=== PATIENT | female | born 1940 | race Caucasian/White ===

== ENCOUNTER → 2016-11-14 | Outpatient (CLI) | payer MEDICARE, BC ==
--- NOTE | 2016-11-15 06:55 | MM ---
Reason for exam: clinical finding. Last mammogram was performed 6 years and 7 months ago. History: Patient is postmenopausal. Physical Findings: Nurse did not find any significant physical abnormalities on exam. MG 3D Diag Mammo W/Cad LEWIS Bilateral CC and MLO view(s) were taken. XCCL and ML view(s) were taken of the right breast. Prior study comparison: April 09, 2010, bilateral digital screening mammogram. June 11, 2007, bilateral screening mammogram w/CAD. There are scattered fibroglandular densities. Finding: There is a 1.8 mm high density, spiculated irregular mass in the right breast with enlarged right axillary lymphadenopathy. These results were verbally communicated with the patient and result sheet given to the patient on 11/14/16. ASSESSMENT: Highly suggestive of malignancy, BI-RAD 5 RECOMMENDATION: Surgical consultation and ultrasound core biopsy of the right breast. (right breast and axilla) Called Dr. Scales with mammographic findings and has scheduled an appointment for the patient for 12/09/16 at 1:[address] Ferrer. Biopsy scheduled for 11/21/16 at 12:20. PRELIMINARY REPORT CALLED AND FAXED TO DR. FERRER ON 11/15/16 AT 300/TP.
--- NOTE | 2016-11-15 06:58 | USB ---
Reason for exam: clinical finding. History: Patient is postmenopausal. US Breast Limited RT Right breast ultrasound demonstrates a 1.0 x 0.8 x 1.2cm solid lesion at 9 o'clock, a 2.6 x 1.9 x 2.8cm node at the axilla tail and a 0.8 x 0.5 x 1.9cm node at the axilla tail. These results were verbally communicated with the patient and result sheet given to the patient on 11/14/16. ASSESSMENT: Suspicious, BI-RAD 4 RECOMMENDATION: Ultrasound core biopsy of the right breast. (irregular mass with lymphadenopathy) (right breast and axilla) Called Dr. Scales with mammographic findings and has scheduled an appointment for the patient for 12/09/16 at 1:[address] Ferrer. Biopsy scheduled for 11/21/16 at 12:20. PRELIMINARY REPORT CALLED AND FAXED TO DR. FERRER ON 11/15/16 AT 300/TP.
== END | disposition home or self-care (01) ==
LOC: RADMAMWWP 13:53
PROVIDERS: ATTEND Family Medicine
DX: R92.8 Other abnormal and inconclusive findings on diagnostic imaging of breast (principal); R59.0 Localized enlarged lymph nodes
CPT/HCPCS: 76642; G0204; G0279

== ENCOUNTER → 2016-11-21 | Day surgery (SDC) | payer MEDICARE, BC ==
[2016-11-21 12:07] VITALS: RESP 16; BMI 36.6
--- NOTE | 2016-11-21 14:19 | USB ---
EXAMINATION TYPE: US biopsy breast VAD RT DATE OF EXAM: 11/21/2016 CLINICAL HISTORY: R92.8 Abn mammogram. TECHNIQUE: Ultrasound guided core biopsy of right breast. COMPARISON: Previous ultrasound dated 11/14/2016 FINDINGS: The procedure of ultrasound guided core biopsy was explained to the patient. Benefits, alternatives, and risks were discussed. An informed consent was then obtained. The patient was placed in supine positioning for imaging and for the procedure. The overlying skin was prepped and draped in usual sterile fashion. Lidocaine buffered with bicarbonate was used as anesthetic into the skin and subcutaneous tissue up to area of concern in the right breast. A amaury was made with surgical scalpel. Under ultrasound guidance, a 12-gauge vacuum assisted biopsy gun device was used to obtain 6 core samples. Following this, a biopsy clip was left in lesion. The patient tolerated the procedure well without any immediate complication. The patient was kept in the radiology department for short stay after the procedure and then discharged home in stable condition. Pathology is pending. A postprocedure mammogram was performed to confirm clip placement. IMPRESSION: SUCCESSFUL ULTRASOUND-GUIDED VAD BIOPSY OF THE RIGHT BREAST. Pathology Results: Malignant A. BREAST, RIGHT SITE A, 9:00, CORE BIOPSY: INVASIVE DUCTAL CARCINOMA. SEE SURGICAL PATHOLOGY CANCER CASE SUMMARY AND COMMENT. B. BREAST, RIGHT SITE B, AXILLARY TAIL, CORE BIOPSY: INVASIVE DUCTAL CARCINOMA. SEE SURGICAL PATHOLOGY CANCER CASE SUMMARY AND COMMENT. Recommendation Surgical consult of the right breast. [facility]
--- NOTE | 2016-11-21 14:23 | USB ---
EXAMINATION TYPE: US biopsy breast VAD RT DATE OF EXAM: 11/21/2016 CLINICAL HISTORY: R92.8 Abn mammogram. TECHNIQUE: Ultrasound guided core biopsy of right axilla. COMPARISON: Previous ultrasound dated 11/14/2016 FINDINGS: The procedure of ultrasound guided core biopsy was explained to the patient. Benefits, alternatives, and risks were discussed. An informed consent was then obtained. The patient was placed in supine positioning for imaging and for the procedure. The overlying skin was prepped and draped in usual sterile fashion. Lidocaine buffered with bicarbonate was used as anesthetic into the skin and subcutaneous tissue up to area of concern in the right breast. Under ultrasound guidance, a 14-gauge coaxial [place] needle was used to obtain 3 core samples. Following this, a [place] clip was left in lesion. The patient tolerated the procedure well without any immediate complication. The patient was kept in the radiology department for short stay after the procedure and then discharged home in stable condition. Pathology is pending. A postprocedure mammogram was performed to confirm clip placement. IMPRESSION: SUCCESSFUL ULTRASOUND-GUIDED VAD BIOPSY OF THE RIGHT AXILLA. Pathology Results: Malignant A. BREAST, RIGHT SITE A, 9:00, CORE BIOPSY: INVASIVE DUCTAL CARCINOMA. SEE SURGICAL PATHOLOGY CANCER CASE SUMMARY AND COMMENT. B. BREAST, RIGHT SITE B, AXILLARY TAIL, CORE BIOPSY: INVASIVE DUCTAL CARCINOMA. SEE SURGICAL PATHOLOGY CANCER CASE SUMMARY AND COMMENT. Recommendation Surgical consult of the right breast. [facility]
--- NOTE | 2016-11-21 14:24 | MM ---
EXAMINATION TYPE: US biopsy breast VAD RT DATE OF EXAM: 11/21/2016 CLINICAL HISTORY: R92.8 Abn mammogram. TECHNIQUE: Ultrasound guided core biopsy of right breast. COMPARISON: Previous ultrasound dated 11/14/2016 FINDINGS: The procedure of ultrasound guided core biopsy was explained to the patient. Benefits, alt ernatives, and risks were discussed. An informed consent was then obtained. The patient was placed in supine positioning for imaging and for the procedure. The overlying skin w as prepped and draped in usual sterile fashion. Lidocaine buffered with bicarbonate was used as anes thetic into the skin and subcutaneous tissue up to area of concern in the right breast. Under ultrasound guidance, a 12-gauge vacuum assisted biopsy gun device was used to obtain 6 core [address]ess ples. Following this, a biopsy clip was left in lesion. The patient tolerated the procedure well without any immediate complication. The patient was kept in the radiology department for short stay after the procedure and then discharged home in stable condi tion. Pathology is pending. A postprocedure mammogram was performed to confirm clip placement. IMPRESSION: SUCCESSFUL ULTRASOUND-GUIDED VAD BIOPSY OF THE RIGHT BREAST.
[2016-11-21 14:28] VITALS: BP 130/63; PULSE 65; TEMP 97.5
== END ==
LOC: RADUSWWP 11:32
PROVIDERS: ATTEND Surgery
DX: C50.911 Malignant neoplasm of unspecified site of right female breast (principal); R92.8 Other abnormal and inconclusive findings on diagnostic imaging of breast
CPT/HCPCS: 88305; 88342; 88341; 19083; 19084; G0206; A4648; J2001

== ENCOUNTER → 2016-12-14 | Outpatient (CLI) | payer MEDICARE, BC ==
--- NOTE | 2016-12-14 11:54 | PE ---
EXAMINATION TYPE: PET CT fusion skull to thigh DATE OF EXAM: 12/14/2016 CLINICAL HISTORY: Breast cancer initial staging study. Biopsy-proven invasive ductal carcinoma in rig ht breast lesion and axillary mass on biopsy November 21. TECHNIQUE: Following the intravenous administration of 14.6 mCi of F-18 FDG, whole body images are performed from the skull base to the midthigh. Images are reviewed on the computer in the coronal, a xial, and sagittal planes. Reconstructed rotating images are created on independent workstation and reviewed on the computer. A non-contrast CT is performed in conjunction with the PET scan. COMPARISON: Diagnostic right breast mammogram and ultrasound November 21, 2016 and older studies. FINDINGS: SKULL BASE AND NECK: No suspicious hypermetabolic uptake is seen in the neck. Mild uptake at level o f the tongue base and vocal cords is symmetric. CHEST, MEDIASTINUM, AND HILAR REGION: Correlating with recent mammograms and ultrasounds there is 2.3 x 2.0 cm right axillary hypermetabolic mass with max SUV of 6.87 on axial image 66 correlates with b iopsy-proven malignancy. Spiculated subcentimeter lesion with biopsy clip central right breast on axial image 76 does not show suspicious hypermetabolic uptake currently. No additional suspicious masses or areas of abnormal hypermetabolic uptake are seen in the right papo st or axilla. No suspicious hypermetabolic areas are seen in the opposite left breast or the remainder of the thora x. ABDOMEN AND PELVIS: No suspicious hypermetabolic uptake is seen in the abdomen or pelvis. OSSEOUS STRUCTURES: No suspicious hypermetabolic uptake is seen in osseous structures. Mild increase uptake at level of both shoulder joints may reflect inflammatory change. OTHER CT: There is peripheral fibrosis and reticulation in bilateral upper lobes. Cardiomegaly is present. Uterus is surgically absent or markedly atrophic in appearance. There is prominent multilevel spurring and disc space narrowing in the cervical spine. There is mult ilevel spurring in the thoracic spine. There is prominent multilevel facet arthropathy in the lumbar spine. There is fairly moderate joint space loss in both hips. Osseous structures are demineralized. IMPRESSION: Central subcentimeter biopsy-proven malignancy right breast does not show hypermetabolic uptake (size limitation perhaps?). Hypermetabolic uptake is seen in known right axillary biopsy-prove n mass or malignancy. No metastatic malignancy or additional suspicious right axillary masses identif ied.
== END ==
LOC: RADPETMAIN 07:20
PROVIDERS: ATTEND Surgery
DX: C50.411 Malignant neoplasm of upper-outer quadrant of right female breast (principal)
CPT/HCPCS: 78815; A9552

== ENCOUNTER → 2016-12-17 | Outpatient (CLI) | payer MEDICARE, BC | END | disposition home or self-care (01) | LOC: LABWHC1 16:48 | PROVIDERS: ATTEND Surgery | DX: C50.919 Malignant neoplasm of unspecified site of unspecified female breast (principal) | CPT/HCPCS: 36415; 82565; 84520 ==

== ENCOUNTER → 2016-12-19 | Outpatient (CLI) | payer MEDICARE, BC ==
--- NOTE | 2016-12-23 11:13 | BMR ---
EXAMINATION TYPE: MR breast BILAT wo/w con DATE OF EXAM: 12/19/2016 COMPARISON: PET/CT from 5 days ago. HISTORY: Biopsy here at [facility] on PACS. Newly diagnosed right breast cancer with axillary involvement Ju 2016 CONTRAST: Multiplanar, multisequence images of the breasts were acquired utilizing 20 mL intravenous MultiHance gadolinium contrast. TECHNIQUE: A series of fat and water weighted images in the long and short axis views of both breasts are obtained in conjunction with dynamic contrast MRI with subtraction technique. Three-dimensional and additional postprocessing imaging is created on independent workstation and reviewed during offi cial interpretation of this study. REFERENCE: Bilateral breast mammogram November 14, 2016 BI-RADS 5. Limited right breast ultrasound October [id number] BI-RADS 4. FINDINGS: Exam is noted markedly suboptimal as is markedly degraded by patient motion and subsequent misregistration artifact. Repeat sequences are not performed because of motion and patient having sig nificant discomfort unable to continue. There is scattered fibroglandular tissue throughout both breasts. There is symmetric minimal backgrou nd enhancement. There is artifact from biopsy clip near level of the nipple slight lateral aspect of right breast anterior depth corresponds to area of biopsy-proven malignancy. No residual mass or susp icious enhancement at this level is clearly seen. Towards the right axilla there is well-defined 2.4 cm round mass with artifact from biopsy clip seen along anterior margin . Remainder of both breasts shows no pathologic enhancement. No suspicious skin thickening is seen bila terally. No concerning intramammary adenopathy is present. No additional suspicious axillary lymph no siva are noted bilaterally. IMPRESSION: Markedly suboptimal study without convincing evidence of additional area of neoplasm in e ither breast. BI-RADS 6 right breast Recommendation: Appropriate surgical and oncologic management.
== END | disposition home or self-care (01) ==
LOC: RADMRIMAIN 19:18
PROVIDERS: ATTEND Surgery
DX: C50.411 Malignant neoplasm of upper-outer quadrant of right female breast (principal)
CPT/HCPCS: 0159T; C8908; A9577; 77059

== ENCOUNTER → 2017-02-13 | Outpatient (CLI) | payer MEDICARE, BC ==
--- NOTE | 2017-02-13 14:58 | BD ---
EXAMINATION TYPE: MG DEXA axial skeleton. DATE OF EXAM: 02/13/2017 COMPARISON: NONE CLINICAL HISTORY: C50.811 BREAST CANCER, Z79.890 POST MENOPAUSAL Height: 61 Weight: 230 FRAX RISK QUESTIONS: Alcohol (3 or more units per day): NO Family History (Parent hip fracture): NO Glucocorticoids (More than 3mos): NO (Ex: prednisone, prednisolone, methylprednisolone, dexamethasone, and hydrocortisone). History of Fracture in Adulthood: NO Secondary Osteoporosis: NO 1. Type 1 Diabetes: NO 2. Hyperthyroidism: NO 3. Menopause before 45: NO 4. Malnutrition: NO 5. Chronic liver disease: NO Rheumatoid Arthritis: NO Current Tobacco Use: NO RISK FACTORS HISTORY OF: Family History of Osteoporosis: NO Active: PRETTY MUCH...USES CANE Diet low in dairy products/other sources of calcium: NO Postmenopausal woman: HYST AT AGE 40, NO HORMONAL CHANGES NOTICED Take estrogen and/or progesterone medications: ESTROGEN FOR 1 MONTH How lon MONTH Lost more than 2 inches in height since high school: NO Hyperparathyroidism: NO Adrenal Insufficiency: NO MEDICATIONS: Additional Medications: ZANTAC, CALCIUM AND VIT D3, Additional History: BILAT TKRS , PT HAS LYMPH CA NOW, RT BREAST CA, OSTEOARTHRITIS EXAM MEASUREMENTS: Bone mineral densitometry was performed using the [employer]. Bone mineral density as measured about the Lumbar spine is: ----- L1-L4(G/cm2): 1.446 T Score Values are as follows: ----- L1: 2.0 ----- L2: 1.9 ----- L3: 3.1 ----- L4: 1.7 ----- L1-L4: 2.2 Bone mineral density THIS IS HER FIRST BONE DENSITY TEST WITH [facility] Bone mineral density about the R hip (g/cm2): 1.031 Bone mineral density about the L hip (g/cm2): 1.033 T Score values are as follows: -----R Neck: -0.6 -----L Neck: -0.6 -----R Total: 0.2 -----L Total: 0.2 Bone mineral density FIRST BONE DENSITY TEST AT [facility] FRAX%'S: THERE IS A 8.0% CHANCE FOR A MAJOR OSTEOPOROTIC FX AND A 1.0% FOR HIP FX....PROBABILITY OF FX IN 10YRS TIME IMPRESSION: Normal (Values between +1 and -1 indicate normal bone mass). Consider repeating this study in 5 year s or sooner if there is some new clinical indication FOR BOTH HIPS AND HER LUMBAR SPINE. NOTE: T-SCORE=SD OF THE YOUNG ADULT MEAN.
== END ==
LOC: RADBDWWP 13:09
PROVIDERS: ATTEND Internal Medicine Hematology & Oncology
DX: C50.811 Malignant neoplasm of overlapping sites of right female breast (principal); N95.1 Menopausal and female climacteric states; Z79.890 Hormone replacement therapy
CPT/HCPCS: 77080

== ENCOUNTER → 2017-04-15 | Outpatient (CLI) | payer MEDICARE, BC ==
--- NOTE | 2017-04-15 13:40 | USB ---
Reason for exam: clinical finding. History: Patient is postmenopausal and has history of breast cancer at age 76. Malignant US breast needle core addl RT of the right breast, November 21, 2016. Malignant US biopsy breast VAD RT of the right breast, November 21, 2016. Physical Findings: Nurse Summary: prominent nodes right axilla, bilateral breasts soft, nodular, movable (nurse ts). US Breast RT Right breast ultrasound includes all four quadrants, the retroareolar region and axilla. Finding demonstrates a 10 x 5 x 8mm irregular, solid, hypoechoic lesion at 9 o'clock, clip seen, slightly smaller and a 16 x 12 x 17mm oval, lobular, solid , hypoechoic lesion at the axilla tail, clip seen, smaller. These results were verbally communicated with the patient and result sheet given to the patient on 04/15/17. ASSESSMENT: Known biopsy proven malignancy, BI-RAD 6 RECOMMENDATION: Surgical consultation of the right breast. Appropriate management with Dr. Ferrer. Case discussed with Dr Ferrer via telephone. Called with mammographic findings and has scheduled an appointment for the patient for 04/15/[address] Ferrer. PRELIMINARY REPORT CALLED AND FAXED TO DR. FERRER ON 04/15/17. [facility]
== END | disposition home or self-care (01) ==
LOC: RADUSWWP 12:17
PROVIDERS: ATTEND Surgery
DX: C50.911 Malignant neoplasm of unspecified site of right female breast (principal)

== ENCOUNTER 2017-04-23 07:22 | Day surgery (SDC) | payer MEDICARE, BC ==
[2017-04-18 14:38] VITALS: BMI 35.4
[~2017-04-23 07:22] MED LIST: DEXAMETHASONE SOD PHOSPHATE 10 MG/ML 1 ML VIAL IV ONE; HEPARIN SODIUM,PORCINE 5,000 UNIT/ML 1 ML VIAL SQ ONE; LACTATED RINGERS 1,000 ML IV SCH; MIDAZOLAM 2 MG/2 ML VIAL IV PRN; ONDANSETRON 4 MG/2 ML VIAL IVP ONE; Pre Op ABX Message 1 EACH MISC MISCELLANE ONE
[2017-04-23] MEDS ORDERED: ALPRAZolam 0.25 MG TAB PO ONE (08:05)
[2017-04-23] MEDS ORDERED: LIDOCAINE 1% 20 ML VIAL (10MG/ML) FOR IV START INTRADERMA ONE (08:13)
[2017-04-23 08:59] LABS: Basophils % (A) 1 %; CH 29.6; CHCM 32.9; Eosinophils # (A) 0.3 k/uL (0-0.7); Eosinophils % (A) 5 %; HCT 37.2 % (34.0-46.0); HDW 2.56; HGB 12.4 gm/dL (11.4-16.0); Luc # (Auto) 0.15; Luc % (Auto) 2; Lymphocytes # (A) 1.3 k/uL (1.0-4.8); Lymphocytes % (A) 21 %; MCH 30.3 pg (25.0-35.0); MCHC 33.4 g/dL (31.0-37.0); MCV 90.6 fL (80.0-100.0); Mean Platelet Volume 8.4; Monocytes # (A) 0.4 k/uL (0-1.0); Monocytes % (A) 6 %; Neutrophils # (A) 4.1 k/uL (1.3-7.7); Neutrophils % (A) 65 %; RDW 14.3 % (11.5-15.5); WBC 6.3 k/uL (3.8-10.6); WBC (Perox) 6.87
[2017-04-23] MEDS ORDERED: LIDOCAINE 1% INJ 10MG/ML (20 ML MDV) SQ ONE (09:07)
[2017-04-23 09:26] LABS: Anion Gap 8 mmol/L; Blood Urea Nitrogen 24 mg/dL (7-17); Calcium 9.2 mg/dL (8.4-10.2); Carbon Dioxide 25 mmol/L (22-30); Chloride 104 mmol/L (98-107); Glucose 100 mg/dL (74-99); Non-African American GFR(MDRD) 54 (>60 ml/min/1.73 sqM); Potassium 3.2 mmol/L (3.5-5.1); Sodium 137 mmol/L (137-145)
[2017-04-23] MEDS ORDERED: SODIUM BICARB 4% 5 ML VIAL (0.48 MEQ/ML) MISCELLANE ONE (09:41)
[2017-04-23] MEDS ORDERED: SUCCINYLCHOLINE CHLORIDE 100 MG/5 ML SYR IV ONE (10:38)
[2017-04-23] MEDS ORDERED: POTASSIUM CHLORIDE 10 MEQ/100 ML BAG ONE (10:38)
[2017-04-23] MEDS ORDERED: MIDAZOLAM 2 MG/2 ML VIAL ONE (10:38)
[2017-04-23] MEDS ORDERED: fentaNYL (PF) 50 MCG/ML 2 ML AMP ONE (10:38)
[2017-04-23] MEDS ORDERED: ONDANSETRON 4 MG/2 ML VIAL ONE (10:38)
[2017-04-23] MEDS ORDERED: LIDOCAINE 1% INJ 10MG/ML (20 ML MDV) ONE (10:38)
[2017-04-23] MEDS ORDERED: PHENYLEPHRINE-0.9% NACL SYG 1 MG/10 ML SYRINGE ONE (10:38)
[2017-04-23] MEDS ORDERED: ePHEDrine SULFATE/0.9% NACL/PF 50 MG/5 ML SYRINGE IV ONE (10:38)
[2017-04-23] MEDS ORDERED: PROPOFOL 10 MG/ML 20 ML VIAL IV ONE (10:38)
[2017-04-23] MEDS ORDERED: SODIUM CHLORIDE 0.9% 50 ML with ceFAZolin 2,000 MG IV ONE ×2 (10:57)
[2017-04-23] MEDS ORDERED: BUPIVACAINE-EPI 0.5%-1:200,000 10 ML VIAL SQ ONE ×2 (11:36)
[2017-04-23] MEDS ORDERED: LACTATED RINGERS 1,000 ML IV ONE ×2 (11:58)
[2017-04-23] MEDS ORDERED: METHYLENE BLUE 10 MG/ML (10 ML VIAL) INJ ONE (12:05)
--- NOTE | 2017-04-23 12:20 | NM ---
EXAMINATION TYPE: NM sentinel node injection DATE OF EXAM: 04/23/2017 COMPARISON: NONE HISTORY: Right breast invasive ductal carcinoma with request for sentinel lymph node node radiotracer injection. TECHNIQUE AND FINDINGS: The procedure of sentinel lymph node injection was explained to the patient. The benefits, alternatives, and risks were discussed. An informed consent was then obtained. Overlying skin is cleaned with sterile alcohol. Lidocaine buffered with bicarbonate was used as anes thetic into the skin and subcutaneous tissue surrounding the nipple. Following this, 517 uCi Tc 99m Filtered Sulfur Colloid was injected into 4 equivalent doses at 12, 3, 6, and 9:00 position surroundi ng the right nipple intradermally. The injection sites were massaged by physicist nuclear for 10 minutes after injection. T he patient tolerated the procedure well without any immediate complication. The patient was kept in the radiology department for short stay after the procedure and then taken to surgery for surgical pr ocedure what is presumed intraoperative gamma probe will be used for sentinel lymph node detection. IMPRESSION: Right breast radiotracer injection for sentinel node localization as above.
[2017-04-23] MEDS ORDERED: ONDANSETRON 4 MG/2 ML VIAL IVP PRN (14:18)
[2017-04-23] MEDS ORDERED: SODIUM CHLORIDE 0.9% 1,000 ML IV STA (14:18)
[2017-04-23] MEDS ORDERED: HYDROcodone/APAP 5-325MG 1 EACH TAB PO PRN (14:18)
[2017-04-23] MEDS: HYDROmorphone 0.5 MG/0.5 ML SYRINGE IVP PRN ×2 (14:22→14:38)
--- NOTE | 2017-04-23 14:50 | P.OP ---
Date of Procedure: 04/23/17 Preoperative Diagnosis: Right breast cancer at 9 o clock with metastatic right axillary lymph node ER+, CT+ , her2 jose negative S/P neoadjuvant hormonal therapy Postoperative Diagnosis: Same Procedure(s) Performed: Right breast wire local lumpectomy Right sentinel lymph node biopsy Right axillary lymph node dissection Placement of 4x3 cm biosorb Anesthesia: NATTY Surgeon: Radha Ferrer Mailing Machine Helper #1: Gabino Garcia Pathology: other Condition: stable Disposition: PACU Indications for Procedure: 77 years old female with incidental finding of enlarged right axillary lymph node on CT thorax done at outside hospital. She had workup done which showed right breast cancer and axillary lymph node was biopsied which was also positive for cancer. She underwent neoadjuvant hormonal therapy with good clinical response. Ultrasound showed persistent abnormal looking lymph node which has decreased in size. Informed was obtained from the patient and she elected to undergo right breast wire localization lumpectomy and aeninel lymph node biopsy and possible ALND Description of Procedure: The patient underwent injection of radioisotope in the right breast in radiology department. She also had wire localization of right breast at 9 oclock and right axillary lymph node which had biopsy clip. She was brought to the operating room and placed in supine position with both arms out. 5 mL of methylene blue was injected in the subdermal plane at 4 quadrants around the areola and the breast was massaged for 5 minutes . General anesthesia with endotracheal intubation was performed as per anesthesia team. No muscle relaxants were given. Chlorhexidine was used to prep the righ tbreast and right axilla Sterile drapes were applied. A timeout was performed to verify correct patient and correct procedure. Patient was confirmed to receive perioperative IV antibiotics, heparin 5000 units subcutaneous injection for the VTE prophylaxis and bilateral SCDs were placed. A hand-held gamma probe was used to detect signals overlying the breast. Radioisotope signal was obtained in the axilla. An elliptical skin incision was made to incorporate the wire exiting from 9 o clock right breast. A circumferential dissection was carried out to incorporate the wire and surrounding breast tissue up to 3 cm. This was removed and cavity was checked for hemostasis. The breast specimen was oriented and inked as per protocol. 3 cm x 4cm Biosorb was sutured in the cavity for radiation. The skin and subcutaneous tissue was closed in 3 layers using 3-0 Vicryl and running 4-0 Monocryl. The axillary skin incision was made from the lateral edge of the pectoralis major muscle to the anterior edge of the latissimus dorsi muscle. Dissection was carried to follow the guidewire in the axilla which led to level II lymph node deep to the pectoralis minor muscle. The clavicopectoral fascia was then incised along the edge of the pectoralis major and the pectoralis major and minor were freed from the surrounding fat and cesar tissue.The lymph nodes had high gamma count consistent with sentinel lymph nodes and were sent for frozen section. No tracer activity was identified in the surrounding axilla. No additional blue lymph nodes were identified. One of the lymph nodes were positive for metastasis and hence decision to proceed with full axillary dissection .Flaps were raised cephalad and caudad to the estimated level of the axillary vein superiorly and the edge of the pectoralis major medially using electrocautery. The pectoralis muscles were retracted medially with a Bello retractor. The medial pectoral neurovascular bundle was identified and preserved. The level II cesar tissue deep to the pectoralis minor was included in the dissection. The axillary vein was also identified and cleared of overlying fat. Thoracodorsal nerve was then identified and preserved, the long thoracic nerve was identified along the edge of the latissimus dorsi on the chest wall and preserved. The remaining cesar tissue between these nerves was then carefully removed, taking care to protect the nerves. The specimen was then sent to pathology. The cavity was irrigated with normal saline. A flat LEIGHANN drain was left in the axilla and was brought out through a separate stab incision . The resulting cavity was checked for hemostasis. The cavity was then closed in layers using 3-0 interrupted Vicryl and 4-0 running Monocryl subcuticular sutures. Sponge, instrument and needle count were correct 2. Patient tolerated the procedure well and was taken to postanesthesia care unit in stable condition Final Pathologic Diagnosis A. SENTINEL LYMPH NODE, RIGHT AXILLA, BIOPSY: TWO LYMPH NODES, ONE NODE POSITIVE FOR METASTATIC CARCINOMA. SIZE OF LARGEST METASTATIC DEPOSIT MEASURES 1.7 CM. CK7 AND KAERN IMMUNOPEROXIDASE STAINS CONFIRM ONE OF TWO NODES TO BE NEGATIVE FOR METASTASIS (CONTROLS APPROPRIATE). B. 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 SEE SURGICAL PATHOLOGY CANCER CASE SUMMARY. C. RIGHT AXILLARY CONTENTS: SIX TOTAL LYMPH NODES NEGATIVE FOR METASTASIS. CK7 AND KAREN IMMUNOPEROXIDASE STAINS ARE CONFIRMATORY (CONTROLS APPROPRIATE). Notes SURGICAL PATHOLOGY CANCER CASE SUMMARY - INVASIVE CARCINOMA OF THE BREAST Procedure: Excision with image guided localization. Lymph Node Sampling: [place] lymph nodes and ancillary dissection. Specimen Laterality: Right. Tumor Size: Greatest dimension of invasion measures 1.1 cm. Histologic Type: Invasive mammary carcinoma of no special type (ductal, not otherwise specified). Histologic Grade ([place] Histologic Score): Glandular (Acinar)/Tubular Differentiation: Score 3. Nuclear Pleomorphism: Score 2. Mitotic Rate: Score 1. Overall Grade: Grade 2 (total score 6). Ductal Carcinoma In Situ (DCIS): DCIS is present, negative for extensive intraductal component (EIC). Nuclear Grade: Grade 1-2. Margins: Invasive carcinoma: Margins uninvolved by invasive carcinoma. Distance of invasive carcinoma from closest margin: Much less than 1 mm from green/yellow (inferior/medial) margin. DCIS: Margins uninvolved by DCIS. Distance of DCIS from closest margin: Less than 1 mm from green/yellow (inferior /medial) margin. Lymph Nodes: Total Number of Lymph Nodes Examined (sentinel and non-sentinel): 8. Number of [place] Lymph Nodes Examined: 2. Number of lymph nodes with macrometastases (>2mm): 1. Number of lymph nodes with micrometastases or isolated tumor cells: 0. Size of largest metastatic deposit: 1.7 cm. Treatment Effect (response to presurgical (neoadjuvant) therapy): In the Breast: Probable minimal response to presurgical therapy in the invasive carcinoma. In the Lymph Nodes: Probable minimal response to presurgical therapy in metastastic carcinoma. Pathologic Staging (pTNM, AJCC 7th Edition, modifier y (post treatment)): Primary Tumor: Tumor greater than 10 mm but less than or equal to 20 mm in greatest dimension (ypT1c). Regional Lymph Nodes: Metastases in one to three axillary lymph nodes, at least one metastases greater than 2.0 mm (ypN1a). Distant Metastasis: Not applicable. Additional Pathologic Findings: Fibrocystic changes and fibrosis/scar suggestive of previous biopsy and/or neoadjuvant treatment related changes.
--- NOTE | 2017-04-23 15:28 | USB ---
EXAMINATION TYPE: US breast localization RT DATE OF EXAM: 04/23/2017 COMPARISON: 04/15/2017 CLINICAL HISTORY: R92.8 ABNORMAL MAMMO. TECHNIQUE: Informed consent was obtained. Preprocedural timeout was performed. Maximal barrier technique is utilized. The skin overlying a suitable path to the patient's axillary left breast mass containing a postbiopsy marker in the right axilla was localized using ultrasound guidance. The skin was prepped and 60 cc of Lidocaine used for local anesthesia. A Kopan needle was advanced to the level of the mass using ultrasound guidance and a wire deployed. Needle was removed and hemostasis achieved. The patient remained in stable condition. There is sonographic verification of wire placement as the axillary mass was not previously seen mammographically. IMPRESSION: Successful ultrasound-guided wire localization of this patient's axillary mass/adenopathy. Pathology Results: Malignant A. SENTINEL LYMPH NODE, RIGHT AXILLA, BIOPSY: TWO LYMPH NODES, ONE NODE POSITIVE FOR METASTATIC CARCINOMA. SIZE OF LARGEST METASTATIC DEPOSIT MEASURES 1.7 CM. CK7 AND KAREN IMMUNOPEROXIDASE STAINS CONFIRM ONE OF TWO NODES TO BE NEGATIVE FOR METASTASIS (CONTROLS APPROPRIATE). B. 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 SEE SURGICAL PATHOLOGY CANCER CASE SUMMARY. C. RIGHT AXILLARY CONTENTS: SIX TOTAL LYMPH NODES NEGATIVE FOR METASTASIS. CK7 AND KAREN IMMUNOPEROXIDASE STAINS ARE CONFIRMATORY (CONTROLS APPROPRIATE). Recommendation Surgical consult of the right breast. [place]
[2017-04-23] MEDS: HEPARIN SODIUM,PORCINE 5,000 UNIT/ML 1 ML VIAL SQ SCH ×2 (15:32→23:56)
[2017-04-23] MEDS: POTASSIUM CHLORIDE 10 MEQ, LIDOCAINE 2% INJ 10 MG in SODIUM CHLORIDE 0.9% 100 ML IVPB SCH ×2 (15:46→17:04)
--- NOTE | 2017-04-23 15:46 | MM ---
EXAMINATION TYPE: MG pre op needle loc RT, MG surgical specimen RT DATE OF EXAM: 04/23/2017 COMPARISON: NONE CLINICAL HISTORY: Biopsy-proven right breast invasive ductal carcinoma. TECHNIQUE: Needle localization with wire placement and surgical excision of area of concern in the right breast. FINDINGS: The procedure of needle localization with wire placement and than surgical excision was explained to the patient. Benefits, alternatives, and risks were discussed. An informed consent was then obtained. The shortest pathway for procedure was chosen. Shortest pathway was lateral medial approach. The overlying skin was prepped and draped in usual sterile fashion. Lidocaine buffered with bicarbonate was used as anesthetic into the skin and subcutaneous tissue up to the level of area of concern. A 5 cm needle was used. It was placed via a lateral medial approach under mammographic guidance. Subsequent 90 degrees mammogram show the needle to be in satisfactory position relative to the targeted area. At this point, wire was placed and the needle was withdrawn. The wire was fixed to patient's skin. Images were marked for surgeon. The patient tolerated the procedure well without any immediate complication. The patient was kept in the radiology department for short stay after the procedure and then taken to surgery for surgical excision. Targeted biopsy marker and wire are identified in specimen mammogram. The patient was kept in hospital for short stay after the procedure and then discharged home in stable condition. IMPRESSION: Successful, uncomplicated needle localization with wire placement and surgical excision of the targeted biopsy marker in the right breast, full pathology results to follow. Pathology Results: Malignant A. SENTINEL LYMPH NODE, RIGHT AXILLA, BIOPSY: TWO LYMPH NODES, ONE NODE POSITIVE FOR METASTATIC CARCINOMA. SIZE OF LARGEST METASTATIC DEPOSIT MEASURES 1.7 CM. CK7 AND KAREN IMMUNOPEROXIDASE STAINS CONFIRM ONE OF TWO NODES TO BE NEGATIVE FOR METASTASIS (CONTROLS APPROPRIATE). B. 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 SEE SURGICAL PATHOLOGY CANCER CASE SUMMARY. C. RIGHT AXILLARY CONTENTS: SIX TOTAL LYMPH NODES NEGATIVE FOR METASTASIS. CK7 AND KAREN IMMUNOPEROXIDASE STAINS ARE CONFIRMATORY (CONTROLS APPROPRIATE). Recommendation Surgical consult of the right breast. MTDD
[2017-04-23] MEDS ORDERED: POTASSIUM CHLORIDE 20 MEQ in WATER FOR INJECTION 1 100ML.BAG IVPB STA (17:38)
[2017-04-23] MEDS: ACETAMINOPHEN IV (For NPO) 1,000 MG in EMPTY BAG 1 BAG IVPB SCH (18:20)
[2017-04-23] MEDS ORDERED: 0.9% NACL WITH KCL 20 MEQ/L 1,000 ML IV SCH (18:30)
[2017-04-23] MEDS ORDERED: rOPINIRole HCL 4 MG TABLET PO SCH (23:15)
[2017-04-24] MEDS: ACETAMINOPHEN IV (For NPO) 1,000 MG in EMPTY BAG 1 BAG IVPB SCH ×2 (01:16→06:52)
[2017-04-24 08:09] VITALS: BP 104/48; PULSE 77; RESP 19; TEMP 97
[2017-04-24] MEDS ORDERED: PANTOPRAZOLE 40 MG/10 ML VIAL IV SCH (09:00)
--- NOTE | 2017-04-24 11:00 | P.DS ---
Providers Expected date of discharge: 04/24/17 Attending physician: Radha Ferrer Primary care physician: Caitlin Jensen [facility] Course: 77 years old female status post right wire localization lumpectomy and right axillary lymph node dissection. Pain is well controlled. No nausea or vomiting. LEIGHANN drain has serosanguineous output. No acute overnight events. Patient is tolerating regular diet. Incisions clean dry and intact. Procedures: Right wire local lumpectomy for breast cancer Right axillary lymph node dissection Patient Condition at Discharge: Good Plan - Discharge Summary Discharge Rx Participant: Yes New Discharge Prescriptions: New Docusate [Colace] 100 mg PO BID #30 capsule Hydrocodone/Acetaminophen [[place] 5-325] 1 each PO Q6HR PRN #30 tab PRN Reason: Pain No Action rOPINIRole HCL 4 mg PO HS Hydrochlorothiazide [Hydrodiuril] 50 mg PO DAILY Meclizine [Antivert] 1 tab PO Q8HR PRN PRN Reason: Vertigo Nf-Hormone Pill Name Unknown 1 tab PO DAILY Discharge Medication List Hydrochlorothiazide [Hydrodiuril] 50 mg PO DAILY 11/19/16 [History] rOPINIRole HCL 4 mg PO HS 11/19/16 [History] Meclizine [Antivert] 1 tab PO Q8HR PRN 11/21/16 [History] Nf-Hormone Pill Name Unknown 1 tab PO DAILY 04/18/17 [History] Docusate [Colace] 100 mg PO BID #30 capsule 04/23/17 [Rx] Hydrocodone/Acetaminophen [[place] 5-325] 1 each PO Q6HR PRN #30 tab 04/23/17 [Rx] Follow up Appointment(s)/Referral(s): Radha Ferrer MD [STAFF PHYSICIAN] - 04/29/17 Patient Instructions/Handouts: *Surgery [facility] - (Anesthesia) Discharge Instructions Outpatient Surgery Activity/Diet/Wound Care/Special Instructions: [facility]: [phone] Discharge Disposition: HOME WITH HOME HEALTH SERVICES
== END 2017-04-24 11:42 | disposition home health service (06) ==
LOC: OR 07:22 → 6PED 13:36 → OR 04-24 11:42
PROVIDERS: ATTEND Surgery
DX: C50.411 Malignant neoplasm of upper-outer quadrant of right female breast (principal); C77.3 Secondary and unspecified malignant neoplasm of axilla and upper limb lymph nodes; Z17.0 Estrogen receptor positive status [ER+]; R94.31 Abnormal electrocardiogram [ECG] [EKG]; G25.81 Restless legs syndrome; Z90.710 Acquired absence of both cervix and uterus; I10 Essential (primary) hypertension; E66.9 Obesity, unspecified; Z68.37 Body mass index [BMI] 37.0-37.9, adult; Z79.899 Other long term (current) drug therapy; Z79.2 Long term (current) use of antibiotics; Z79.891 Long term (current) use of opiate analgesic
CPT/HCPCS: 93005; 80048; 85025; 76098; 19281; 19285; 38792; 19125; 38745; A9541; J2001 ×2; J1644; J1100; J2405; J3480; Q9968; J0690; J0131 ×2; J1170; 88307; 88331; 88332; 88341; 88342

== ENCOUNTER → 2017-12-08 | Outpatient (CLI) | payer MEDICARE, BC ==
--- NOTE | 2017-12-08 14:23 | MM ---
Reason for exam: additional evaluation requested from prior study. Last mammogram was performed 1 year and 1 month ago. History: Patient is postmenopausal and has history of breast cancer at age 77. Malignant MG pre op needle loc RT of the right breast, April 23, 2017. Malignant US breast localization RT of the right breast, April 23, 2017. Lumpectomy of the right breast, April 23, 2017. Malignant US breast needle core addl RT of the right breast, November 21, 2016. Malignant US biopsy breast VAD RT of the right breast, November 21, 2016. Taking antineoplastic for 6 months. 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 MG 3D Diag Mammo W/Cad LEWIS Bilateral CC and MLO view(s) were taken. Prior study comparison: November 21, 2016, right breast MG diagnostic mammo RT wo CAD. November 14, 2016, bilateral MG 3d diag mammo w/cad LEWIS. There are scattered fibroglandular densities. No suspicious abnormality. Post therapy change on the right in the breast and axilla. These results were verbally communicated with the patient and result sheet given to the patient on 12/08/17. ASSESSMENT: Benign, BI-RAD 2 RECOMMENDATION: Follow-up diagnostic mammogram of both breasts in 1 year.
== END | disposition home or self-care (01) ==
LOC: RADMAMWWP 13:24
PROVIDERS: ATTEND Internal Medicine Hematology & Oncology
DX: Z08 Encounter for follow-up examination after completed treatment for malignant neoplasm (principal); Z85.3 Personal history of malignant neoplasm of breast
CPT/HCPCS: 77066; G0279; 77062

== ENCOUNTER → 2017-12-23 | Outpatient (CLI) | payer MEDICARE ==
--- NOTE | 2017-12-23 10:42 | XR ---
EXAMINATION TYPE: XR chest 2V DATE OF EXAM: 12/23/2017 COMPARISON: PET/CT dated 12/14/2016 HISTORY: Bronchospasm. Shortness of breath. TECHNIQUE: Frontal and lateral views of the chest are obtained. FINDINGS: There is upper mediastinal rotation secondary to patient positioning, however there is pro minence of the right perihilar region and right paratracheal stripe. Peripheral linear opacity likely relates to fibrosis as well as right apical density, also likely related to fibrosis with volume los s as there is elevation of the right minor fissure. No focal opacity to suggest pneumonia is seen. No pulmonary vascular congestion or pneumothorax. Cardia mediastinal silhouette is within normal limits . There is generalized osseous demineralization and postsurgical changes of the right axilla/breast. Moderate multilevel degenerative changes of the thoracic spine are noted. IMPRESSION: 1. No focal consolidation to suggest pneumonia. 2. Prominence of the right perihilar region and right paratracheal stripe that could relate to vascul ar prominence given patient rotation or adenopathy. Follow-up with CT thorax could be performed given the patient's history of breast cancer. 3. Findings favor to relate to pulmonary fibrosis in the right upper lobe with associated volume loss .
== END | disposition home or self-care (01) ==
LOC: CPPFTMAIN 10:15
PROVIDERS: ATTEND Family Medicine
DX: J98.01 Acute bronchospasm (principal); J40 Bronchitis, not specified as acute or chronic; Z85.3 Personal history of malignant neoplasm of breast
CPT/HCPCS: 71046; 94060; 94726; 94729

== ENCOUNTER → 2018-01-09 | Outpatient (CLI) | payer MEDICARE ==
--- NOTE | 2018-01-09 14:58 | CT ---
EXAMINATION TYPE: High-resolution CT chest DATE OF EXAM: 01/09/2018 COMPARISON: Radiograph 12/23/[address] 12/14/2016 HISTORY: 77-year-old female interstitial lung disease 653.90 TECHNIQUE: Contiguous high resolution axial scanning of the chest without IV contrast utilizing 1 mm slice thickness and 1 cm gap. Both prone and supine imaging was performed. CT DLP: 653.90 mGycm Automated exposure control for dose reduction was used. FINDINGS: Heart normal size without pericardial effusion. Aorta normal caliber with conventional arch vessel branching anatomy. No evidence of thoracic lymphadenopathy allowing for images CT technique and lack of contrast. Extensive septal thickening right greater than left upper lungs especially in the right apex or confl uent opacity is present with associated traction bronchiectasis. Most of these changes are present al jeramie the subpleural regions. Changes are present to a lesser degree at the lung bases. No static honey combing predominantly groundglass. No cystic changes or centrilobular nodularity. No perilymphatic no dularity. No aaron consolidation or pleural effusion. Small hiatal hernia. Visualized upper abdomen shows no gross abnormality line for HRCT technique. Bones: Endplate spondylosis especially in the mid thoracic spine. Surgical changes of lumpectomy and radiation therapy to the right breast. Surgical clips in the right axilla. IMPRESSION: 1. UPPER LUNG PREDOMINANT INTERSTITIAL LUNG DISEASE, RIGHT GREATER THAN LEFT, PROGRESSED FROM THE PAT IENT'S 12/14/2016 PET/CT. THERE IS ASSOCIATED TRACTION BRONCHIECTASIS. SOME DIFFERENTIAL CONSIDERATIONS INCLUDE PULMONARY SARCOIDOSIS, FIBROTIC NSIP, DRUG REACTION, AND PLE UROPARENCHYMAL FIBROELASTOSIS. ETIOLOGIES SUCH IBD AND ANKYLOSING SPONDYLITIS WOULD HAVE AN APPROP RIATE CLINICAL HISTORY.
== END | disposition home or self-care (01) ==
LOC: RADCTMAIN 14:00
PROVIDERS: ATTEND Internal Medicine Critical Care Medicine
DX: J84.9 Interstitial pulmonary disease, unspecified (principal); J47.9 Bronchiectasis, uncomplicated
CPT/HCPCS: 71250

== ENCOUNTER → 2018-04-21 | Outpatient (CLI) | payer MEDICARE ==
--- NOTE | 2018-04-21 17:24 | CT ---
EXAMINATION TYPE: CT chest w con DATE OF EXAM: 04/21/2018 COMPARISON: 01/09/2018 HISTORY: Shortness of breath. History of radiation to breast tissue. CT DLP: 602 mGycm Automated exposure control for dose reduction was used. CONTRAST: CT scan of the chest is performed with IV Contrast, patient injected with 80ml mL of Isovue M300. FINDINGS: LUNGS/PLEURAL SPACES/AIRWAYS: The previously seen upper lung interstitial lung disease, right greater than left, has progressed on the right when compared to the prior study. It is nearly twice that see n on the prior study of 01/09/2018, and is accompanied with mixed groundglass opacity. No definite wilma nge in the left lung parenchyma. Pleural spaces are negative. Traction bronchiectasis redemonstrated, unchanged. MEDIASTINUM: There are no greater than 1 cm hilar or mediastinal lymph nodes. No pericardial effusi on is seen. Mild cardiomegaly redemonstrated; no pericardial effusion. The aorta and pulmonary arter ial system are negative. OTHER: Previously seen right breast findings are redemonstrated, without definite interval change. N o subdiaphragmatic abnormalities. No acute focal skeletal findings. IMPRESSION: Interval increase in the right lung interstitial process with associated mixed groundglass opacity dominguez ggesting a new component of pneumonitis; otherwise stable findings.
== END | disposition home or self-care (01) ==
LOC: RADCTMAIN 15:38
PROVIDERS: ATTEND Internal Medicine Critical Care Medicine
DX: R91.8 Other nonspecific abnormal finding of lung field (principal)
CPT/HCPCS: 82565; 84520; 71260; 36415; Q9967

== ENCOUNTER → 2018-06-08 | Outpatient (CLI) | payer MEDICARE ==
--- NOTE | 2018-06-08 11:43 | CT ---
EXAMINATION TYPE: CT angio chest DATE OF EXAM: 06/08/2018 COMPARISON: 04/21/2018 HISTORY: Shortness of breath [address] DLP: 565 mGycm. Automated Exposure Control for Dose Reduction was Utilized. CONTRAST: CTA scan of the thorax is performed with IV Contrast, patient injected with 80 mL of Isovue 370, pulm onary embolism protocol. MIP Images are created on CT scanner and reviewed. FINDINGS: LUNGS: As seen on the prior exam of 04/21/2018 there is interstitial lung disease, right greater than left with continued progression. There is right hemithorax volume loss, right upper lobe honeycombin g, diffuse varicose bronchiectasis, and interlobular septal thickening. There is further rightward me diastinal shift in comparison to the prior. Interstitial lung disease within the anterior left upper lobe has also slightly progressed from the prior. Subpleural reticulation is seen throughout the enti rety of the left lung. Findings overall limit evaluation for pulmonary nodule.. MEDIASTINUM: There is satisfactory enhancement of the pulmonary artery and its branches, there is no CT evidence for pulmonary embolism. There are no greater than 1 cm hilar or mediastinal lymph nodes. Few punctate coronary calcifications are seen. No cardiomegaly or pericardial effusion is seen. OTHER: Right breast lumpectomy changes and axillary node dissection changes are seen as surgical clip s are present. Right hemidiaphragm elevation is present. There is a small hiatal hernia seen. Probabl e calcified lymph node is noted within the mesentery that is partially visualized on image 146. Simil ar-appearing area on image 143 within the left mid abdomen could relate to a colonic diverticulum wit h inspissated debris or calcified lymph node. There is slight thickening of the left adrenal gland no loni without discrete nodule. Finding may relate to benign adrenal gland hyperplasia. IMPRESSION: 1. No evidence of pulmonary embolism. 2. Continued progressive nature of the known interstitial lung disease (right greater than left) with pulmonary fibrosis predominating in the right lung apex. Given the extent acute infectious component remains a possibility, difficult to exclude. 3. Redemonstration of right-sided hemithorax volume loss with progressive rightward mediastinal shift in comparison to the prior. 4. Small hiatal hernia. 5. Right breast lumpectomy changes and status post axillary node dissection.
== END | disposition home or self-care (01) ==
LOC: RADCTMAIN 10:18
PROVIDERS: ATTEND Internal Medicine Critical Care Medicine
DX: J84.10 Pulmonary fibrosis, unspecified (principal); K44.9 Diaphragmatic hernia without obstruction or gangrene; R93.89 Abnormal findings on diagnostic imaging of other specified body structures; Z98.890 Other specified postprocedural states
CPT/HCPCS: 82565; 84520; 71275; 36415; Q9967

== ENCOUNTER 2018-06-09 11:09 | Day surgery (SDC) | payer MEDICARE ==
[~2018-06-09 11:09] MED LIST changes: +ALBUTEROL NEB (CONC) 2.5 MG/0.5 ML INHALATION ONE; +ATROPINE SULFATE 0.4 MG/ML 1 ML VIAL IM ONE; -DEXAMETHASONE SOD PHOSPHATE 10 MG/ML 1 ML VIAL IV ONE; -HEPARIN SODIUM,PORCINE 5,000 UNIT/ML 1 ML VIAL SQ ONE; +LACTATED RINGERS 1,000 ML IV ONE; +LIDOCAINE HCL/PF 20 MG/ML ML INHALATION ONE; +LIDOCAINE VISCOUS 2% 15 ML CUP MUCOUS MEM ONE; -MIDAZOLAM 2 MG/2 ML VIAL IV PRN; -ONDANSETRON 4 MG/2 ML VIAL IVP ONE; -Pre Op ABX Message 1 EACH MISC MISCELLANE ONE
[2018-06-09] MEDS ORDERED: MIDAZOLAM 2 MG/2 ML VIAL ONE (13:00)
[2018-06-09] MEDS ORDERED: SUCCINYLCHOLINE CHLORIDE 100 MG/5 ML SYR IV ONE (13:00)
[2018-06-09] MEDS ORDERED: ROCURONIUM BROMIDE 10 MG/ML 10 ML VIAL IV ONE (13:00)
[2018-06-09] MEDS ORDERED: PROPOFOL 10 MG/ML 20 ML VIAL IV ONE (13:00)
[2018-06-09] MEDS ORDERED: LIDOCAINE 1% INJ 10MG/ML (20 ML MDV) ONE (13:00)
[2018-06-09] MEDS ORDERED: DEXAMETHASONE SOD PHOS (MDV) 100 MG/10 ML VIAL ONE (13:00)
[2018-06-09 14:04] VITALS: TEMP 972
[2018-06-09] MEDS: MORPHINE SULFATE 2 MG/ML SYRINGE IV PRN ×2 (14:12→14:21)
[2018-06-09 14:34] VITALS: RESP 18
[2018-06-09 15:26] VITALS: BP 109/75; PULSE 78
--- NOTE | 2018-06-09 16:08 | XR ---
EXAMINATION TYPE: XR chest 1V portable DATE OF EXAM: 06/09/2018 COMPARISON: Prior chest x-ray 12/23/2017 HISTORY: Status post right upper lobe lung biopsy TECHNIQUE: Single frontal view of the chest is obtained. FINDINGS: Volume loss noted in the right hemithorax, parenchymal density is present throughout much of the right lung. Interstitium is increased. Surgical clips noted in the right axilla. Heart size ma y be accentuated by rotation, there are overlying cardiac leads. No evident pneumothorax or pleural e ffusion. IMPRESSION: No evident complication status post lung biopsy. Interstitial lung disease.
--- NOTE | 2018-06-09 16:17 | FL ---
EXAMINATION TYPE: FL bronchoscopy DATE OF EXAM: 06/09/2018 COMPARISON: NONE HISTORY: 78-year-old female right upper lobe biopsies TECHNIQUE: Fluoroscopy. FINDINGS: Fluoroscopic guidance was provided during procedure performed by Dr. Avery. A total of 48 seconds of fluoroscopic time was utilized during the procedure and 1 spot images was acquired. IMPRESSION: Procedural fluoroscopy during right upper lobe biopsies.
--- NOTE | 2018-06-09 19:15 | PCN ---
PROCEDURE NOTE PROCEDURE PERFORMED: Bronchoscopy, airway examination, therapeutic lavage, BAL brushes right upper lobe, BAL right upper lobe, transbronchial biopsies right upper lobe. OPERATORS: Dr. Avery and Dr. Tyler. ANESTHESIA: Provided general anesthesia by the anesthesiologist and [employer]. DESCRIPTION OF PROCEDURE: There was informed consent and universal timeout. The patient's procedure was done in room #1. After the patient was adequately sedated and on the effects of anesthesia, the bronchoscope was inserted through the bronchoscope adapter connected to the endotracheal tube. We localized the area of the right upper lobe. First, we did brushes in the right upper lobe. They were done under fluoroscopic guidance. Next, we did multiple transbronchial biopsies of the right upper lobe. Finally, we did washes to the right upper lobe. The patient tolerated the procedure well. There was no bleeding. The bronchoscope withdrawn. The patient will be recovered. A chest x-ray will be done to rule out pneumothorax. There were no major complications or issues. Patient tolerated the procedure well. I discussed what was done with the patient's . MMODL / IJN: [id number] /
== END 2018-06-09 15:53 | disposition home or self-care (01) ==
LOC: ORWHC2ENDO 11:09
PROVIDERS: ATTEND Internal Medicine Critical Care Medicine
DX: J70.0 Acute pulmonary manifestations due to radiation (principal); Z85.3 Personal history of malignant neoplasm of breast; I10 Essential (primary) hypertension; G25.81 Restless legs syndrome; Z79.811 Long term (current) use of aromatase inhibitors; Z79.52 Long term (current) use of systemic steroids; Z79.899 Other long term (current) drug therapy; R06.02 Shortness of breath
CPT/HCPCS: 94640; 87798 ×3; 87496; 87498; 87529 ×2; 88104; 88108; 88305; 87252; 87502; 87634; 87070; 87205; 87116; 87102; 87206; 71045; 31628; 31623; J2250; J0461; J2001 ×2; J2270; J1100; J0330; J2704; 31624